=== PATIENT | male | born 1955 | race Caucasian/White ===

== ENCOUNTER → 2020-11-18 09:26 | Outpatient (BNVA) | payer SELFPAY | PROVIDERS: Family Provider Nurse Practitioner; PCP Nurse Practitioner; Visit Provider Dermatology | DX: Z01.89 Encounter for other specified special examinations (principal) ==

== ENCOUNTER → 2021-11-10 08:02 | Outpatient (BNVA) | payer SELFPAY | PROVIDERS: Family Provider Nurse Practitioner; PCP Nurse Practitioner; Visit Provider Dermatology | DX: Z01.89 Encounter for other specified special examinations (principal) ==

== ENCOUNTER → 2022-11-09 08:00 | Outpatient (BNVA) | payer SELFPAY | PROVIDERS: Family Provider Nurse Practitioner; PCP Nurse Practitioner; Visit Provider Dermatology | DX: Z01.89 Encounter for other specified special examinations (principal) ==

== ENCOUNTER → 2022-11-24 15:14 | Outpatient (BNVA) | payer MEDICARE, OTHER, SELFPAY | PROVIDERS: Family Provider Nurse Practitioner; PCP Nurse Practitioner; Visit Provider Nurse Practitioner | DX: L98.9 Disorder of the skin and subcutaneous tissue, unspecified (principal) | CPT/HCPCS: 88304 ==

== ENCOUNTER 2022-12-01 07:40 | Outpatient (CLI) | payer MEDICARE, OTHER, SELFPAY ==
--- NOTE | 2022-12-01 07:30 | CT_ITS ---
WS: [id number] LDCT LUNG CANCER SCREENING TECHNIQUE: Noncontrast CT of the chest with coronal and sagittal reformatted images. CLINICAL INFORMATION: Z87.891 - Personal history of nicotine dependenc COMPARISON: None. DLP: 76.89 mGy.cm DIvol: Mean CTDIvol: 1.60 (mGy) All CT scans at [facility] use at least one of these dose optimization techniques: automat ed exposure control; mA and/or kV adjustment per patient size (includes targeted exams where dose is matched to clinical indication); or iterative reconstruction. FINDINGS: Lungs are well aerated. No acute pulmonary infiltrates. No focal pneumonia or pleural fluid . No suspicious pulmonary parenchymal opacities. Normal caliber thoracic aorta. Coronary calcification. A few mediastinal lymph nodes not pathological ly enlarged. No axillary lymphadenopathy. Partially evaluated small calcified RIGHT thyroid nodule. Adrenal glands are normal. Normal GE junction. Fatty atrophy of the pancreas. Incidental hemangioma i n the mid thoracic spine. Calcified granuloma RIGHT lower lobe. CT/CT lung screening [id number] IMPRESSION: LUNG-RADS: 1-Negative FOLLOW UP: 12 Month: Continue annual screening with LDCT
== END 2022-12-01 07:41 | disposition home or self-care (01) ==
LOC: RAD 07:44
PROVIDERS: PCP Nurse Practitioner; Visit Provider Nurse Practitioner
DX: Z12.2 Encounter for screening for malignant neoplasm of respiratory organs (principal); Z87.891 Personal history of nicotine dependence
CPT/HCPCS: 71271

== ENCOUNTER → 2023-02-10 09:38 | Outpatient (BNVA) | payer MEDICARE, OTHER, SELFPAY | PROVIDERS: PCP Nurse Practitioner; Visit Provider Internal Medicine Cardiovascular Disease | DX: I10 Essential (primary) hypertension (principal); E66.01 Morbid (severe) obesity due to excess calories; Z68.41 Body mass index [BMI] 40.0-44.9, adult; Z72.0 Tobacco use | CPT/HCPCS: 99203 ==

== ENCOUNTER 2023-03-03 08:29 | Outpatient (CLI) | payer MEDICARE, OTHER, SELFPAY ==
--- NOTE | 2023-03-03 08:45 | USCV_ITS ---
Chon Pascual Age: 67 Gender: M : 1955 Exam Date: 03/03/2023 08:47 Ordering Phys: Liya Fuller MD ([email or web address]) Technologist: Conchita Cooper [place] [facility] [place] SOB BP: 146 / 80 HR: 63 Rhythm: Sinus Technical Quality: Good MEASUREMENTS (Male / Female) Normal Values 2D ECHO LV Diastolic Diameter PLAX 4.4 cm 4.2 - 5.9 / 3.9 - 5.3 cm LV Systolic Diameter PLAX 2.2 cm IVS Diastolic Thickness 1.6 cm 0.6 - 1.0 / 0.6 - 0.9 cm IVS Systolic Thickness 2.2 cm LVPW Diastolic Thickness 1.7 cm 0.6 - 1.0 / 0.6 - 0.9 cm LVPW Systolic Thickness 2.5 cm LVOT Diameter 2.1 cm LV Ejection Fraction 2D Teich 81.1 % LV Ejection Fraction MOD 2C 82.3 % LV Ejection Fraction 2C AL 82.7 % LA Diameter 4.7 cm LA Width 4.6 cm LA Height 5.5 cm RA Width 3.9 cm RA Height 6.0 cm Aorta at Sinotubular Diameter 3.4 cm IVC Diameter 2.1 cm M-MODE Aortic Annulus Diameter 3.7 cm LA Ao Ratio MM 1.3 MV E Point Septal Separation 0.1 cm DOPPLER AV Peak Velocity 98.0 cm/s LVOT Peak Velocity 120.0 cm/s AV Area Cont Eq vti 3.6 cm squared AV Area Cont Eq pk 4.2 cm squared MV Peak Velocity 91.0 cm/s MV Area PHT 3.4 cm squared Mitral E to A Ratio 1.4 MV E' Velocity 47.5 cm/s Mitral E to MV E' Ratio 9.8 Mitral E to LV E' Lateral Ratio 7.5 Mitral E to LV E' Septal Ratio 14.4 TR Peak Velocity 100.0 cm/s TR Peak Gradient 4.0 mmHg Right Atrial Pressure 5.0 mmHg Pulmonary Artery Systolic Pressu 9.0 mmHg PV Peak Velocity 120.0 cm/s RV Acceleration Time 0.2 s RV Ejection Time 0.3 s RV AcT/ET 0.5 FINDINGS Left Ventricle Normal left ventricular size, systolic function and wall thickness, with no regional wall motion abnormalities. Left ventricular ejection fraction is estimated at 60-65 %. Normal diastolic function. Right Ventricle Normal right ventricular size and systolic function. Right ventricular systolic pressure 9 mmHg. Right Atrium Normal right atrial size. Left Atrium Normal left atrial size. Mitral Valve Structurally normal mitral valve. No mitral valve stenosis. Trace mitral valve regurgitation. Aortic Valve Structurally normal trileaflet aortic valve. No aortic valve stenosis. No aortic valve regurgitation. Tricuspid Valve Structurally normal tricuspid valve. No tricuspid valve stenosis. Trace tricuspid valve regurgitation. Pulmonic Valve Structurally normal pulmonic valve. No pulmonary valve stenosis. Trace pulmonary valve regurgitation. Pericardium No pericardial effusion. Aorta Normal size aortic root and proximal ascending aorta. IVC Normal IVC dimension with >50% respiratory change of the inferior vena cava. CONCLUSIONS 1. Normal left ventricular size, systolic function and wall thickness, with no regional wall motion abnormalities. Left ventricular ejection fraction is estimated at 60 %. Normal diastolic function. 2. No significant valvular abnormality. 3. No prior similar studies to compare. Liya Fuller MD (Electronically Signed) Final Date: 07 March 2023 17:30 S
== END 2023-03-03 08:30 | disposition home or self-care (01) ==
PROVIDERS: PCP Nurse Practitioner; Visit Provider Internal Medicine Cardiovascular Disease
DX: R06.02 Shortness of breath (principal)
CPT/HCPCS: 93306; 99203

== ENCOUNTER → 2023-05-10 13:52 | Outpatient (BNVA) | payer MEDICARE, OTHER, SELFPAY | PROVIDERS: PCP Nurse Practitioner; Visit Provider Nurse Practitioner Family | DX: H65.90 Unspecified nonsuppurative otitis media, unspecified ear (principal); H66.93 Otitis media, unspecified, bilateral; F41.8 Other specified anxiety disorders; I10 Essential (primary) hypertension; E55.9 Vitamin D deficiency, unspecified; M54.2 Cervicalgia; G89.29 Other chronic pain | CPT/HCPCS: 80053; 80061; 84443; 85025 ==

== ENCOUNTER 2023-06-15 07:00 | Outpatient (CLI) | payer MEDICARE, OTHER, SELFPAY ==
--- NOTE | 2023-06-15 07:15 | MR_ITS ---
WS: [id number] MRI CERVICAL SPINE NONCONTRAST HISTORY: S06.0XAA - Concussion and fall. COMPARISON: None available. Technique: Multiplanar, multisequence noncontrast imaging of the cervical spine. This examination is significantly compromised by motion on all sequences. Grossly the cervical alignment is normal. The disc spaces are all moderately narrowed. No marrow maddi a is identified but with this amount of motion subtle edema would be obscured. Signal within the cord is limited in the mid cervical spine due to motion. Craniocervical junction, C1 and C2 relationship, odontoid process and soft tissues are normal. C2-C3: Osteophytic ridging. Mild LEFT foraminal stenosis. C3-C4: Osteophytic ridging. Mild foraminal stenosis. C4-C5: Mild osteophytic ridging. Suspect a small central disc protrusion. Mild central and bilateral foraminal stenosis. C5-C6: Limited evaluation. There is at least moderate central and bilateral foraminal stenosis. C6-C7: Limited but moderate central and foraminal stenosis. C7-T1: Mild osteophytic ridging and annular disc bulging. Paraspinal soft tissues are extremely limited. IMPRESSION: 1. Technically very difficult evaluation of the cervical spine due to motion. 2. C5-6 and C6-7. Limited evaluation but there is at least moderate central and bilateral foraminal s tenosis. 3. Mild bilateral foraminal stenosis at 334 and on the LEFT at C2-3. 4. C4-5: Mild central and bilateral foraminal stenosis.
--- NOTE | 2023-06-15 08:00 | MR_ITS ---
WS: [id number] MRI BRAIN WITHOUT CONTRAST HISTORY: S06.0XAA - Concussion with loss of consciousness status u... COMPARISON: None available. TECHNIQUE: Diffusion imaging, multiplanar T1, T2 and FLAIR imaging obtained. No evidence for acute infarct or hemorrhage. Nina-white matter differentiation is normal. No significant atrophy. Moderate small vessel ischemic type changes surrounding the ventricles in the subcortical white matter. Some of the T2 white matter lesions are closely associated with the corpus callosum. 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 Ventricles and extra-axial spaces are normal. No inferior displacement of cerebellar tonsils. The sella turcica and pituitary gland are unremarkabl e. Dural venous sinuses and benton of Garg demonstrate no abnormality on this unenhanced studies. Paranasal sinuses: Clear. Mastoid air cells: Normal. Calvarium and scalp: Intact. IMPRESSION: 1. No acute infarct. No intracranial hemorrhage or subdural blood. 2. Moderate small vessel ischemic type changes surrounding the ventricles and in the subcortical whi te matter. Some of the white matter lesions are closely associated with the corpus callosum. Probably small vessel ischemic disease but demyelination should also be considered. 3. No infarcts and no ventriculomegaly.
== END 2023-06-15 07:01 | disposition home or self-care (01) ==
PROVIDERS: PCP Nurse Practitioner; Visit Provider Nurse Practitioner
DX: S06.0XAA Concussion with loss of consciousness status unknown, initial encounter (principal); X58.XXXA Exposure to other specified factors, initial encounter; M48.02 Spinal stenosis, cervical region
CPT/HCPCS: 70551; 72141

== ENCOUNTER → 2023-11-22 09:00 | Outpatient (BNVA) | payer MEDICARE, OTHER, SELFPAY | PROVIDERS: PCP Nurse Practitioner; Visit Provider Nurse Practitioner | DX: F41.8 Other specified anxiety disorders (principal); K59.01 Slow transit constipation; I10 Essential (primary) hypertension; M48.50XA Collapsed vertebra, not elsewhere classified, site unspecified, initial encounter for fracture; G47.00 Insomnia, unspecified; M79.2 Neuralgia and neuritis, unspecified; E66.01 Morbid (severe) obesity due to excess calories; Z12.5 Encounter for screening for malignant neoplasm of prostate | CPT/HCPCS: 80053; 80061; G0103 ==

== ENCOUNTER → 2024-01-14 12:38 | Outpatient (BNVA) | payer MEDICARE, OTHER, SELFPAY | PROVIDERS: PCP Nurse Practitioner; Visit Provider Emergency Medicine | DX: J06.9 Acute upper respiratory infection, unspecified (principal) | CPT/HCPCS: 87400; 87426 ==

== ENCOUNTER → 2024-09-06 09:20 | Outpatient (BNVA) | payer MEDICARE, OTHER, SELFPAY | PROVIDERS: PCP Nurse Practitioner; Visit Provider Nurse Practitioner | DX: I10 Essential (primary) hypertension | CPT/HCPCS: 80053; 80061; 85025 ==

== ENCOUNTER → 2025-06-20 09:19 | Outpatient (BNVA) | payer MEDICARE, OTHER, SELFPAY | PROVIDERS: PCP Nurse Practitioner; Visit Provider Nurse Practitioner | DX: I10 Essential (primary) hypertension (principal); Z12.5 Encounter for screening for malignant neoplasm of prostate | CPT/HCPCS: 80053; 80061; 84443; G0103 ==

== ENCOUNTER → 2025-07-01 09:53 | Outpatient (BNVA) | payer MEDICARE, OTHER, SELFPAY | PROVIDERS: PCP Nurse Practitioner; Visit Provider Nurse Practitioner | DX: Z87.81 Personal history of (healed) traumatic fracture (principal); M47.815 Spondylosis without myelopathy or radiculopathy, thoracolumbar region; M47.816 Spondylosis without myelopathy or radiculopathy, lumbar region; M51.35 Other intervertebral disc degeneration, thoracolumbar region; M51.369 Other intervertebral disc degeneration, lumbar region without mention of lumbar back pain or lower extremity pain | CPT/HCPCS: 72072; 72100 ==